=== PATIENT | female | born 1975 | race Caucasian/White ===

== ENCOUNTER 2021-05-19 15:35 | Emergency (ER) | payer OTHER ==
[~2021-05-19] VITALS: Ht 162.6 cm; Wt 68.0 kg
[2021-05-19] MEDS ORDERED: BIRTH CONTROL (15:40)
[2021-05-19] MEDS ORDERED: BUSPIRONE HCL5 MG PO (15:40)
[2021-05-19 15:55] LABS: ABSOLUTE LYMPHOCYTES 3.2 thou/uL (0.8-5.3); ABSOLUTE MONOCYTES 0.3 thou/uL (0.0-1.2); ABSOLUTE NEUTROPHILS 2.2 thou/uL (1.6-8.1); BASOPHILS 0.7 %; EOSINOPHILS 0.4 %; HEMATOCRIT 40.7 % (37.0-47.0); HEMOGLOBIN 13.7 gm/dL (12.0-15.0); LYMPHOCYTES 54.9 %; MCHC 33.7 g/dL (28.0-37.0); MCV 100.9 fL (80.0-100.0); MONOCYTES 5.6 %; MPV 6.6 fl. (7.2-11.1); NUCLEATED RBCS 0 /100WBC; PLATELET COUNT* 162 thou/uL (150-400); POLYS 38.4 %; RBC 4.03 mil/uL (4.20-5.00); RDW-CV 13.3 % (10.5-14.5); WBC 5.8 thou/uL (4.0-11.0)
[2021-05-19 16:04] LABS: CREATININE 0.7 mg/dL (0.6-1.3); POTASSIUM 3.2 mmol/L (3.5-5.1)
--- NOTE | 2021-05-19 16:07 | EKG ---
[place] [address] ELECTROCARDIOGRAM REPORT Name: TATIANA BAIRES Room: [facility].#: [id number] Admission: Attend Phys: Discharge: Date of : 77 Date of Service: 05/19/211541 Report #: [id number] THIS REPORT FOR: //name// [facility] ED Test Date: 2021-05-19 Test Time: 15:42:49 Pat Name: TATIANA BAIRES Department: Room: Gender: F [employer] Teacher: MILADIS : 1975 Requested By: Doc Yu Order Number: [id number] MD: Rob Aguilar Measurements Intervals [place] Rate: 128 P: 58 OH: 135 QRS: -8 QRSD: 94 T: 4 QT: 317 QTc: 463 Interpretive Statements Sinus tachycardia Low voltage, precordial leads Probable anteroseptal infarct, old No previous ECG available for comparison Electronically Signed On 05-19-2021 16:06:51 [employer]IC[employer] by Rob Aguilar [email or web address] <ELECTRONICALLY SIGNED> By: Rob Aguilar MD, [facility] 05/19/21 1606 [id number] Rob Aguilar MD, FACC /EPI
[2021-05-19 16:09] LABS: ALBUMIN 4.2 g/dL (3.4-5.0); TOTAL BILIRUBIN 0.8 mg/dL (<0.1-1.0); TOTAL PROTEIN 9.1 g/dL (6.4-8.2)
[2021-05-19 16:27] VITALS: BP 157/106
[2021-05-19 16:35] LABS: SALICYLATE < 2.8 mg/dL (2.8-20.0)
[2021-05-19 16:38] LABS: ACETAMINOPHEN < 2 ug/mL (10-30)
[2021-05-19 16:39] LABS: ALCOHOL 507 mg/dL (<10)
== END 2021-05-19 16:28 | disposition home or self-care (01) ==
LOC: M.ERS 15:35
PROVIDERS: Family Medicine
DX: F10.920 Alcohol use, unspecified with intoxication, uncomplicated (principal); R51.9 Headache, unspecified; F41.9 Anxiety disorder, unspecified; Z79.899 Other long term (current) drug therapy; Z88.2 Allergy status to sulfonamides; Y90.8 Blood alcohol level of 240 mg/100 ml or more